=== PATIENT | female | born 1945 | race Caucasian/White ===

== ENCOUNTER 2017-04-13 01:01 | Inpatient (IN) | payer OTHER, MEDICARE ==
[~2017-04-13] VITALS: Ht 170.2 cm; Wt 86.2 kg
[~2017-04-13 01:01] MED LIST: FISH OIL 1,0001 EAC2 PO; JOINT HEALTH T1 EACH PO; MULTIVITAMINS1 EAC9 PO
[2017-04-13] MEDS ORDERED: ASPIRIN EC325 M2 PO (09:27)
[2017-04-13] MEDS ORDERED: COLACE100 M1 PO (09:27)
[2017-04-13] MEDS ORDERED: DILAUDID2 M1 PO (09:27)
[2017-04-13] MEDS ORDERED: MIRALAX17 G1 PO (09:27)
[2017-04-13] MEDS ORDERED: PROTONIX20 M1 PO (09:27)
--- NOTE | 2017-04-13 09:32 | Patient Discharge Instructions ---
Discharge Instructions General Discharge Information You were seen/treated for: left hip pain You had these procedures: left total hip replacement Watch for these problems: temp greater than 101 redness and drainage from wound Other wound care: ok to shower keep wound clean and dry Diet Continue normal diet: Yes Activity Activity Self Limited: Yes Activity Limited to: Weight bear as tolerated Acute Coronary Syndrome Inclusion Criteria At DC or during hospital stay patient has or had the following: ACS DIAGNOSIS No Discharge Core Measures Meds if any: Prescribed or Continued at Discharge Meds if any: NOT Prescribed or Continued at Discharge Congestive Heart Failure Inclusion Criteria At DC or during hospital stay patient has or had the following: CHF DIAGNOSIS No Discharge Core Measures Meds if any: Prescribed or Continued at Discharge Meds if any: NOT Prescribed or Continued at Discharge Cerebrovascular accident Inclusion Criteria At DC or during hospital stay patient has or had the following: CVA/TIA Diagnosis No Discharge Core Measures Meds if any: Prescribed or Continued at Discharge Meds if any: NOT Prescribed or Continued at Discharge Venous thromboembolism Inclusion Criteria VTE Diagnosis No VTE Type NONE VTE Confirmed by (Test) NONE Discharge Core Measures - Per Current guidelines, there needs to be overlap - treatment for the first 5 days of Warfarin therapy. - If discharged on Warfarin prior to 5 days of - overlap therapy, the patient will need to be - assessed for post discharge needs including - *Post discharge parental anticoagulation - *Warfarin and/or parental anticoagulation education - *Follow up date to check INR post discharge At least 5 days overlap therapy as Inpatient No Meds if any: Prescribed or Continued at Discharge Note: Overlap Therapy is Warfarin and Anticoagulant Meds if any: NOT Prescribed or Continued at Discharge
--- NOTE | 2017-04-13 09:34 | Admission Core Measures ---
Acute Coronary Syndrome (CM) ACS Core Measures Acute Coronary Syndrome Diagnosis No Congestive Heart Failure (NEW) CHF Core Measures Congestive Heart Failure Diagnosis No Cerebrovascular Accident (NEW) CVA Core Measures CVA/TIA Diagnosis No Venous Thromboembolism VTE Core Brenda (View Protocol) VTE Risk Factors Surgery No Mechanical VTE Prophylaxis d/t N/A MechProphylax Ordered No VTE Pharm Prophylaxis d/t NA PharmProphylax ordered Problem List As ranked by this Provider includes Assessment & Plan 1. Status post total hip replacement, left HOME MEDS Home Med List Aspirin (Ecotrin*) 325 MG TABLET.DR 1 TAB PO BID ANTICOAGULATION Cartilage/Collagen/Bor/Hyalur (Joint Health Tablet) (Unknown Strength) TABLET (Unknown Dose) PO DAILY SUPPLEMENT (Reported) Docusate Sodium (Colace) 100 MG CAPSULE 1 CAP PO BID STOOL SOFTENER Hydromorphone HCl (Dilaudid) 2 MG TABLET 1-2 TAB PO Q4-6 PRN PRN PAIN Multiple Vitamin (Multivitamins) 1 EACH TABLET 1 TAB PO DAILY SUPPLEMENT ( Reported) [place]-3/Dha/Epa/Fish Oil (Fish Oil 1,000 MG Softgel) (Unknown Strength) CAPSULE (Unknown Dose) PO DAILY SUPPLEMENT (Reported) Pantoprazole Sodium (Protonix) 20 MG TABLET.DR 1 TAB PO DAILY GI PROTECTION Polyethylene Glycol 3350 (Miralax) 17 GRAM POWD.PACK 1 PAC PO DAILY CONSTIPATION
--- NOTE | 2017-04-13 09:37 | Surg Short-stay <48hrs Dis Sum ---
Visit Information Visit Dates Admission Date: 04/13/17 Discharge Date: 04/14/2017 Surgical Short Stay DC Summary Admission Diagnosis: left hip OA Final Diagnosis: SP LEFT MINDA Procedure(s): LEFT HIP MINDA Summary/Significant Findings: ON 04/13/17 PT PRESENTED FOR AN ELECTIVE LEFT MINDA. PT TOLERATED THE PROCEDURE WELL. POSTOPERATIVELY THEIR PAIN WAS MANAGED, THEY VOIDED AND WERE TOLERATING PO INTAKE. PT WAS CLEARED FOR DISCHARGE BY PHYSICAL THERAPY Condition at Discharge: STABLE Discharge Disposition: home health services Discharge instructions provided to patient/family: Yes Post discharge follow-up plan: SCHEDULED APPOINTMENT WITH DR IRIZARRY IN 6 WEEKS Copies to: Vin Irizarry MD
--- NOTE | 2017-04-13 12:40 | RADIOLOGY REPORT ---
EXAMINATION: CR HIP, LEFT CLINICAL INFORMATION: Status post left total hip arthroplasty. COMPARISON: None TECHNIQUE: Two views of the left hip. FINDINGS: The patient is status post total left hip arthroplasty with the prosthetic components well seated within the k[place] bone. No hardware failure or kot[place] bone fracture is seen. Evaluation on the lateral view, especially in region of the hip joint, is limited due to overlapping structures. Left sacroiliac joint is intact. IMPRESSION: Limited assessment on lateral view. Total left hip arthroplasty in place and in anatomic alignment with no acute findings seen.
[2017-04-13 13:00] VITALS: BP 148/70
--- NOTE | 2017-04-13 13:43 | Operative Report ---
Operative/Inv Procedure Report Surgery Date: 04/13/17 Name of Procedure: Left total hip replacement Pre-Operative Diagnosis: Primary left hip DJD Post-Operative Diagnosis: Same Estimated Blood Loss: 300 Surgeon/Breaker Off: Angus STAFFORD,Vin Esquivel Anesthesia: block Operative/Procedure Note Note: Description of Procedure: The patient was taken to the operating room and positively identified. After induction of spinal anesthesia and administration of appropriate pre-operative antibiotics, the patient was positioned supine on the operating room table and all bony prominences were well padded. After performing a surgical timeout, the left lower extremity was prepped and draped in the usual sterile fashion. A direct anterior approach was made to the left hip. The incision was carried sharply through superficial soft tissues to the level of the fascia. Meticulous hemostasis was maintained with Bovie electocautery. The fascia over the tensor fascia juana muscle was opened sharply and the interval between the TFL and the sartorius was entered bluntly taking care to stay lateral to the lateral femoral cutaneous nerve. Retractors were placed around the femoral neck and the pericapsular fat was identified. The ascending branches of the lateral femoral circumflex vessels were identified and carefully coagulated. The pericapsular fat and anterior capsule were then resected. A napkin ring osteotomy was performed and the femoral head was removed without difficulty. Attention was then turned to the acetabulum. After appropriate placement of retractors, the acetabulum was exposed. Soft tissue was cleaned from the acetabular margin and notch. Overhanging osteophytes were removed and the teardrop was exposed. The acetabulum was then sequentially reamed to accept a 54 mm Sheffield Tritanium hemispherical solid shell. This was impacted into place in the appropriate position and fitted with a 36 mm Trident X3 zero degree polyethylene insert. Attention was then turned to the femur. After performing the appropriate ligament releases, the proximal femur was exposed. It was then sequentially broached to accept a size 3 Ruby Accolade II stem. This was trialed for leg length and stability. The trial component was removed and the final component was impacted into place. The trunnion was carefully cleaned and fit with a 36 mm, +0 Biolox delta ceramic femoral head. The hip was reduced and put through a full range of motion and found to be stable. The articular space was then irrigated with sterile saline. The periarticular soft tissues were infilitrated with Marcaine. The fascial layer was closed with interrupted #1 vicryl suture and the skin was re-approximated with interrupted 2 -0 vicryl. The skin was closed with a running 3-0 V-Lock suture. Steri-strips and a sterile dressing were applied. The patient was awakened and taken to the recovery room in satisfactory condition.
--- NOTE | 2017-04-13 14:11 | PN- Orthopedic ---
Subjective Subjective: poc s/p left brad no major complaints now denies cp, sob, no n+v awqaiting pt for ambulation Objective Vital Signs and I&Os Vital Signs Date Time Temp Pulse Resp B/P B/P Pulse O2 O2 Flow FiO2 Mean Ox Delivery Rate 04/13 1300 Room Air 04/13 1300 95.2 42 18 148/70 96 Room Air 04/13 1300 95.2 42 18 148/70 96 Room Air Intake & Output 04/13 1600 04/13 0800 04/13 0000 04/12 1600 04/12 0800 04/12 0000 Intake Total Output Total Balance Patient 190 lb Weight Weight Standing Scale Measurement Method Physical Exam: cv; rrr lungs; clear abd: soft, +bs ext: thigh soft drsg dry distal cms intact bilat Assessment/Plan Assessment/Plan ortho stable s/p left brad plan oob with pt wbat left le asa bid/alps for dvt prophylaxis titrate pain meds advance diet as tolerated home d/c in am Core Measures Venous Thromboembolism VTE Risk Factors Surgery No Mechanical VTE Prophylaxis d/t N/A MechProphylax Ordered No VTE Pharm Prophylaxis d/t NA PharmProphylax ordered
[2017-04-13 15:03] VITALS: BP 152/74
[2017-04-13 19:25] VITALS: BP 111/59
[2017-04-13 23:06] VITALS: BP 119/63
[2017-04-14 07:19] VITALS: BP 116/57
--- NOTE | 2017-04-14 07:43 | PN- Orthopedic ---
Subjective Subjective: pt in bed, c/o moderate pain but says that the IV tylenol really helped. voiding, no BM yet. Ambulating. No N/V. NO numbness or tingling. No fever. No CP/SOB Objective Vital Signs and I&Os Vital Signs Date Time Temp Pulse Resp B/P B/P Pulse O2 O2 Flow FiO2 Mean Ox Delivery Rate 04/14 0719 98.9 72 18 116/57 95 Room Air 04/13 2306 97.4 86 18 119/63 98 Room Air 04/13 1925 96.4 73 18 111/59 99 Room Air 04/13 1503 95.4 64 18 152/74 97 Room Air 04/13 1300 Room Air 04/13 1300 95.2 42 18 148/70 96 Room Air 04/13 1300 95.2 42 18 148/70 96 Room Air Intake & Output 04/14 0800 04/14 0000 04/13 1600 04/13 0800 04/13 0000 04/12 1600 Intake Total 340 705 450 Output Total 500 200 Balance -160 505 450 Intake, IV 100 225 150 Intake, Oral 240 480 300 Output, Urine 500 200 Patient 190 lb Weight Weight Standing Scale Measurement Method Physical Exam: gen- NAD, AAx3 resp- clear cardio-RRR abd- soft, NT ext- L hip soft, no signs of infection. dressing clean and dry. distal movement and sensation intact. 1+ left PT pulse Assessment/Plan Assessment/Plan 71yo F SP L MINDA plan for DC to home later today with health services dvt PPX- ASA and ALPs reg diet pain management PT-encourage ambulation encourage IS Core Measures Venous Thromboembolism VTE Risk Factors Surgery No Mechanical VTE Prophylaxis d/t N/A MechProphylax Ordered No VTE Pharm Prophylaxis d/t NA PharmProphylax ordered
[2017-04-14 09:05] LABS: ABSOLUTE BASOPHIL COUNT 0 /CUMM (0.0-0.2); ABSOLUTE EOSINOPHIL COUNT 0 /CUMM (0.0-0.7); ABSOLUTE GRANULOCYTE CT 8.1 /CUMM (1.4-6.5); ABSOLUTE LYMPH COUNT 2.6 /CUMM (1.2-3.4); ABSOLUTE MONOCYTE COUNT 1.1 /CUMM (0.10-0.60); BASOPHIL % 0.3 % (0.0-2.0); EOSINOPHIL % 0.3 % (0-5); GRANULOCYTE % 68.3 % (42.2-75.2); HEMATOCRIT 29.5 % (37-47); MEAN CORPUSCULAR HGB 29.7 PG (27.0-31.0); MEAN CORPUSCULAR HGB CONC 33.3 G/DL (33.0-37.0); MEAN CORPUSCULAR VOLUME 89.4 FL (81.0-99.0); MEAN PLATELET VOLUME 10.1 FL (7.4-10.4); PLATELET COUNT 181 /CUMM (130-400); RBC DISTRIBUTION WIDTH 13.2 % (11.5-14.5); WHITE BLOOD CELL COUNT 11.8 /CUMM (4.8-10.8)
[2017-04-14 13:16] VITALS: BP 114/60
== END 2017-04-14 15:40 | disposition home health service (06) | DRG 470 ==
LOC: 2NB 01:01 → SDA 01:01 → ENRESERV 12:11 → ENTRNSPT 12:21 → EDTRNSPTSTS 12:28 → EDTRNSPT 12:28 → 2NB 12:40 → CMPTRNSPT 12:53 → ENPENDDIS 04-14 13:26 → ENTRNSPT 04-14 15:22 → 2NB 04-14 15:40 → CMPTRNSPT 04-14 15:58
PROVIDERS: Physician Assistant Surgical
PROC: 0SRB04A Replacement of Left Hip Joint with Ceramic on Polyethylene Synthetic Substitute, Uncemented, Open Approach (ICD-10-PCS; principal; 2017-04-13)
DX: M16.12 Unilateral primary osteoarthritis, left hip (principal); F41.9 Anxiety disorder, unspecified; M25.752 Osteophyte, left hip
CPT/HCPCS: 2NBP; 36415; 73502-LT; 82436; 97110-GO; 97116-GO; 97161-GP; 97530-GO; J0131; J0690; J1100; J2405; J2550